=== PATIENT | female | born 1935 | race Caucasian/White ===

== ENCOUNTER 2017-01-01 12:05 | Day surgery (SDC) | payer MEDICARE, OTHER ==
[~2017-01-01] VITALS: Ht 165.1 cm; Wt 68.0 kg
[2017-02-28] MEDS ORDERED: AMARYL4 MG PO (15:46)
[2017-02-28] MEDS ORDERED: COZAAR100 MG PO (15:46)
[2017-02-28] MEDS ORDERED: LIPITOR20 MG PO (15:47)
[2017-02-28] MEDS ORDERED: GLUCOPHAGE1000 MG PO (15:48)
[2017-02-28] MEDS ORDERED: HYDROCHLOROTHIA25 MG PO (15:50)
[2017-02-28] MEDS ORDERED: FISH OIL1 GM PO (15:51)
[2017-02-28] MEDS ORDERED: ASPIRIN81 MG PO (15:51)
== END 2017-01-01 16:34 | disposition short-term general hospital (02) ==
LOC: SURGOP 12:05
PROC: 08RK3JZ Replacement of Left Lens with Synthetic Substitute, Percutaneous Approach (ICD-10-PCS; principal; 2017-01-01)
DX: Z96.1 Presence of intraocular lens (principal); H26.9 Unspecified cataract; I10 Essential (primary) hypertension; E11.9 Type 2 diabetes mellitus without complications; E78.5 Hyperlipidemia, unspecified; D64.9 Anemia, unspecified; M19.90 Unspecified osteoarthritis, unspecified site; Z79.82 Long term (current) use of aspirin; Z79.899 Other long term (current) drug therapy; Z90.89 Acquired absence of other organs
CPT/HCPCS: J0171; J3473; V2632